=== PATIENT | male | born 2000 | race Caucasian/White ===

== ENCOUNTER 2024-07-10 05:09 | Inpatient (IN) | payer BC ==
[~2024-07-10] VITALS: Ht 182.9 cm; Wt 78.5 kg
[~2024-07-10 05:09] MED LIST: ACAM333T8 PO; CYCL-1 PO; CYCL-394 PO; HYDR-3965 PO; NAPR-56 PO; NAPR-996 PO; PANT-47 PO
[2024-07-10 06:35] LABS: BASOPHILS % (AUTO) 0.2 % (0-1); EOSINOPHILS # (AUTO) 0.1 X10'3 (0-0.9); EOSINOPHILS % (AUTO) 0.9 % (0-6); HEMOGLOBIN 14.9 g/dl (14.0-17.9); LYMPHOCYTES # (AUTO) 0.6 X10'3 (1.1-4.8); MEAN CORPUSCULAR HEMOGLOBIN 30.6 PG (27.0-31.0); MEAN CORPUSCULAR HGB CONC 32.4 g/dL (33.0-36.5); MEAN CORPUSCULAR VOLUME 94.5 FL (78-98); MEAN PLATELET VOLUME 8.2 FL (7.4-10.4); MONOCYTES # (AUTO) 0.6 X10'3 (0-0.9); MONOCYTES % (AUTO) 5.7 % (2-12); NEUTROPHILS # (AUTO) 8.5 X10'3 (1.8-7.7); NEUTROPHILS % (AUTO) 87.2 % (42-75); PLATELET COUNT 232 X10'3 (140-440); RED BLOOD COUNT 4.87 X10'6 (4.70-6.10); RED CELL DISTRIBUTION WIDTH 14.8 % (11.5-14.5); WHITE BLOOD COUNT 9.8 X10'3 (4.5-11.0)
[2024-07-10 06:53] LABS: ALANINE AMINOTRANSFERASE 148 U/L (12-78); ALBUMIN 4.1 G/DL (3.4-5.0); ALBUMIN/GLOBULIN RATIO 1.2 (1.1-1.5); ALKALINE PHOSPHATASE 115 IU/L (46-116); ANION GAP 10 (8-16); ASPARTATE AMINO TRANSFERASE 109 U/L (10-37); BILIRUBIN,TOTAL 1.9 MG/DL (0.1-1.0); BLOOD UREA NITROGEN 10 MG/DL (7-18); BUN/CREATININE RATIO 12.3 (10.0-20.0); CALCIUM 8.8 MG/DL (8.5-10.1); CHLORIDE 98 MMOL/L (99-107); CREATININE 0.81 MG/DL (0.60-1.10); GLUCOSE 190 MG/DL (70-104); POTASSIUM 3.6 MMOL/L (3.5-5.1); SODIUM 134 MMOL/L (135-145); TOTAL CARBON DIOXIDE 25.6 MMOL/L (24-32); TOTAL PROTEIN 7.5 G/DL (6.4-8.2); eCRCL 154 ML/MIN; eGFR > 90 ML/MIN
[2024-07-10] MEDS ORDERED: iohexol 300mg/ml 100ml inj. ONE (06:59)
[2024-07-10] MEDS: ondansetron/PF 4mg/2ml inj IV ONE (07:07)
[2024-07-10] MEDS: normal saline 1000ml 1,000 ML IV ONE (07:08)
[2024-07-10] MEDS: morphine 2 MG/ML inj. syringe IV ONE (07:08)
[2024-07-10 07:20] LABS: LIPASE > 375 U/L (16-77)
[2024-07-10 07:28] LABS: ETHANOL < 10 MG/DL (<10); MAGNESIUM 1.7 MG/DL (1.5-2.4)
[2024-07-10] MEDS: morphine 2 MG/ML inj. syringe IV PRN (11:17)
[2024-07-10] MEDS ORDERED: acetaminophen 325mg tablet PO PRN (12:05)
[2024-07-10] MEDS ORDERED: magnesium hydroxide 30ml (MOM) UD suspension PO PRN (12:05)
[2024-07-10] MEDS ORDERED: potassium Cl 40MEQ/1/2NS 520ml 520 ML IV PRN (12:05)
[2024-07-10] MEDS ORDERED: potassium Cl 20 mEq SR tablet PO PRN ×2 (12:05)
[2024-07-10] MEDS ORDERED: magnesium Cl slow-release 64mg tablet PO PRN (12:05)
[2024-07-10] MEDS ORDERED: magnesium sulf-water 4G/100mL 100 ML IV PRN (12:05)
[2024-07-10] MEDS ORDERED: mag hydrox/Alum hydrox/simeth 30ml oral suspension PO PRN (12:05)
[2024-07-10] MEDS ORDERED: ondansetron/PF 4mg/2ml inj IV PRN (12:05)
[2024-07-10] MEDS ORDERED: magnesium sulf-water 2g/50mL 50 ML IV PRN (12:05)
[2024-07-10] MEDS: normal saline 1000ml 1,000 ML IV SCH (12:38)
[2024-07-10] MEDS ORDERED: NO HOME MEDS (12:59)
[2024-07-10] MEDS: dextrose 5%-normal saline 1,000 ML IV SCH (13:15)
[2024-07-10] MEDS ORDERED: haloperidol 5mg tablet PO PRN (14:10)
[2024-07-10] MEDS ORDERED: glucagon, human recombinant 1mg kit SUBCUT PRN (14:20)
[2024-07-10] MEDS ORDERED: dextrose 50%-water 50ml dispensing syringe IV PRN ×2 (14:20)
[2024-07-10] MEDS ORDERED: DEXTROSE 15 GM of carb/4 tabs (each vial/BOTTLE has 4 tablets) PO PRN ×2 (14:20)
[2024-07-10 15:19] LABS: CHOL/HDL RATIO 1.5 (0.00-4.99); CHOLESTEROL 148 MG/DL (0-200); HDL CHOLESTEROL 99 MG/DL (35-60); LDL CHOLESTEROL 30 MG/DL (50-100); TRIGLYCERIDES 55 MG/DL (20-135)
[2024-07-10] MEDS: nicotine 14mg patch - 24hr TD SCH (15:31)
[2024-07-10] MEDS: folic acid 1mg/0.2ml inj IV SCH (15:31)
[2024-07-10 15:33] LABS: HEMOGLOBIN A1C 4.7 % (4.5-6.2)
[2024-07-10] MEDS: LORazepam 2 mg/ml vial IV PRN (16:46)
[2024-07-10] MEDS: INSULIN LISPRO 100 UNIT/ML INSULN.PEN MULTI-DOSE SQ SCH (17:00)
[2024-07-10] MEDS: docusate sod 100mg capsule PO SCH (20:05)
[2024-07-10] MEDS: K and/or MAG REPLACEMENT MC SCH (20:06)
[2024-07-10] MEDS: thiamine 100mg/ml 2ml inj. IV SCH (21:30)
[2024-07-10 22:00] VITALS: BP 144/98; PULSE 94; RESP 16; TEMP 98.4; O2SAT 99
[2024-07-11 05:58] LABS: BASOPHILS % (AUTO) 0.2 % (0-1); EOSINOPHILS # (AUTO) 0.5 X10'3 (0-0.9); EOSINOPHILS % (AUTO) 5.6 % (0-6); HEMATOCRIT 43.9 % (42.0-52.0); HEMOGLOBIN 14.5 g/dl (14.0-17.9); LYMPHOCYTES # (AUTO) 0.7 X10'3 (1.1-4.8); LYMPHOCYTES % (AUTO) 8.8 % (21-51); MEAN CORPUSCULAR HEMOGLOBIN 31.1 PG (27.0-31.0); MEAN CORPUSCULAR VOLUME 94.2 FL (78-98); MEAN PLATELET VOLUME 8.9 FL (7.4-10.4); MONOCYTES # (AUTO) 0.8 X10'3 (0-0.9); MONOCYTES % (AUTO) 9.6 % (2-12); NEUTROPHILS # (AUTO) 6.5 X10'3 (1.8-7.7); NEUTROPHILS % (AUTO) 75.8 % (42-75); PLATELET COUNT 193 X10'3 (140-440); RED BLOOD COUNT 4.66 X10'6 (4.70-6.10); WHITE BLOOD COUNT 8.5 X10'3 (4.5-11.0)
[2024-07-11 06:00] VITALS: BP 147/87; PULSE 74; RESP 16; TEMP 97.5; O2SAT 98
[2024-07-11 06:04] LABS: INR 1.1 INR
[2024-07-11 06:09] LABS: ALANINE AMINOTRANSFERASE 93 U/L (12-78); ALBUMIN 3.4 G/DL (3.4-5.0); ALKALINE PHOSPHATASE 104 IU/L (46-116); ANION GAP 5 (8-16); ASPARTATE AMINO TRANSFERASE 49 U/L (10-37); BILIRUBIN,TOTAL 1.4 MG/DL (0.1-1.0); BLOOD UREA NITROGEN 7 MG/DL (7-18); BUN/CREATININE RATIO 9.7 (10.0-20.0); CALCIUM 8.4 MG/DL (8.5-10.1); CHLORIDE 101 MMOL/L (99-107); CREATININE 0.72 MG/DL (0.60-1.10); GLUCOSE 108 MG/DL (70-104); MAGNESIUM 1.8 MG/DL (1.5-2.4); PHOSPHORUS 1.8 MG/DL (2.3-4.5); POTASSIUM 4.1 MMOL/L (3.5-5.1); SODIUM 135 MMOL/L (135-145); TOTAL CARBON DIOXIDE 28.9 MMOL/L (24-32); TOTAL PROTEIN 6.9 G/DL (6.4-8.2); eCRCL 174 ML/MIN; eGFR > 90 ML/MIN
[2024-07-11 07:16] LABS: LIPASE > 375 U/L (16-77)
[2024-07-11 10:00] VITALS: BP 147/98; PULSE 100; RESP 14; TEMP 97.8; O2SAT 97
[2024-07-11 18:00] VITALS: BP 137/57; PULSE 111; RESP 16; TEMP 97.8; O2SAT 97
[2024-07-11 19:40] VITALS: BP 148/104; PULSE 97; RESP 16; TEMP 97.8; O2SAT 99
[2024-07-11 22:00] VITALS: BP 133/94; PULSE 78; RESP 16; TEMP 97.7; O2SAT 98
[2024-07-12 06:25] LABS: INR 1.1 INR; PROTHROMBIN TIME 11.8 SECONDS (9.0-12.0)
[2024-07-12 06:29] LABS: EOSINOPHILS # (AUTO) 0.6 X10'3 (0-0.9); EOSINOPHILS % (AUTO) 6.7 % (0-6); MONOCYTES # (AUTO) 1.1 X10'3 (0-0.9); NEUTROPHILS # (AUTO) 6.3 X10'3 (1.8-7.7)
[2024-07-12 06:30] LABS: BASOPHILS % (AUTO) 0.3 % (0-1); HEMATOCRIT 42.6 % (42.0-52.0); HEMOGLOBIN 14.1 g/dl (14.0-17.9); LYMPHOCYTES # (AUTO) 1.3 X10'3 (1.1-4.8); LYMPHOCYTES % (AUTO) 13.5 % (21-51); MEAN CORPUSCULAR HEMOGLOBIN 31.4 PG (27.0-31.0); MEAN PLATELET VOLUME 9.4 FL (7.4-10.4); MONOCYTES % (AUTO) 12.1 % (2-12); NEUTROPHILS % (AUTO) 67.4 % (42-75); PLATELET COUNT 195 X10'3 (140-440); RED BLOOD COUNT 4.48 X10'6 (4.70-6.10); RED CELL DISTRIBUTION WIDTH 14.8 % (11.5-14.5); WHITE BLOOD COUNT 9.3 X10'3 (4.5-11.0)
[2024-07-12 06:37] VITALS: BP 125/86; PULSE 81; RESP 22; TEMP 97.8; O2SAT 98
[2024-07-12 06:47] LABS: ALANINE AMINOTRANSFERASE 70 U/L (12-78); ALBUMIN 2.9 G/DL (3.4-5.0); ALBUMIN/GLOBULIN RATIO 0.7 (1.1-1.5); ALKALINE PHOSPHATASE 103 IU/L (46-116); ANION GAP 5 (8-16); ASPARTATE AMINO TRANSFERASE 37 U/L (10-37); BILIRUBIN,TOTAL 1.5 MG/DL (0.1-1.0); BLOOD UREA NITROGEN 8 MG/DL (7-18); CALCIUM 8.6 MG/DL (8.5-10.1); CHLORIDE 100 MMOL/L (99-107); GLUCOSE 106 MG/DL (70-104); LIPASE 358 U/L (16-77); MAGNESIUM 1.8 MG/DL (1.5-2.4); POTASSIUM 4.5 MMOL/L (3.5-5.1); SODIUM 136 MMOL/L (135-145); TOTAL CARBON DIOXIDE 30.7 MMOL/L (24-32); TOTAL PROTEIN 7.1 G/DL (6.4-8.2); eCRCL 156 ML/MIN; eGFR > 90 ML/MIN
[2024-07-12 06:58] LABS: BILIRUBIN,URINE NEGATIVE (Neg); CLARITY,URINE SLIGHTLY CLOUDY (Clear); COLOR,URINE YELLOW (Yellow); GLUCOSE, URINE NEGATIVE (Neg); KETONES,URINE TRACE mg/dl (Neg); LEUKOCYTE ESTERASE ,URINE SMALL (Neg); NITRITES, URINE NEGATIVE (Neg); OCCULT BLOOD,URINE NEGATIVE (Neg); PH,URINE >=9.0 (4.8-8.0); PROTEIN,URINE TRACE mg/dl (Neg); UROBILINOGEN,URINE >=8.0 E.U/dL (0.2-1.0)
[2024-07-12 07:10] LABS: UA COLLECTION TYPE CLN CATCH MIDSTREAM; URINE AMPHETAMINE SCREEN NEGATIVE (Neg); URINE BARBITUATE SCREEN NEGATIVE (Neg); URINE BENZODIAZEPINES SCREEN NEGATIVE (Neg); URINE CANNABINOID SCREEN POSITIVE (Neg); URINE COCAINE SCREEN POSITIVE (Neg); URINE METHADONE SCREEN NEGATIVE (Neg); URINE OPIATE SCREEN POSITIVE (Neg); URINE PHENCYCLIDINE SCREEN NEGATIVE (Neg)
[2024-07-12 07:12] LABS: RBC,URINE NONE SEEN /HPF (0-2); WBC,URINE 0-4 /HPF (0-4)
[2024-07-12 07:14] LABS: AMORPHOUS PHOSPHATES 1+; BACTERIA,URINE 2+ /HPF (Neg); SQUAMOUS EPITHELIAL CELL,UR NONE SEEN /LPF (FEW)
[2024-07-12 08:00] VITALS: RESP 20; O2SAT 97
[2024-07-12] MEDS: CefTRIAXone/D5W-Rocephin 1gm 50 ML IV SCH (15:45)
[2024-07-12] MEDS: morphine 2 MG/ML inj. syringe IV PRN (17:03)
[2024-07-12] MEDS: azithromycin 250mg tablet PO ONE (17:54)
[2024-07-12 18:00] VITALS: BP 150/96; PULSE 87; RESP 16; TEMP 97.9; O2SAT 99
[2024-07-12 20:04] LABS: HIV ANTIBODY 1&2 RAPID NON-REACTIVE (Neg)
[2024-07-12 22:00] VITALS: BP 127/78; PULSE 78; RESP 17; TEMP 98.2; O2SAT 99
[2024-07-12] MEDS: LORazepam 1 MG tablet PO PRN (23:11)
[2024-07-13 06:04] LABS: LYMPHOCYTES # (AUTO) 0.7 X10'3 (1.1-4.8); LYMPHOCYTES % (AUTO) 11.7 % (21-51); MONOCYTES # (AUTO) 0.7 X10'3 (0-0.9); NEUTROPHILS # (AUTO) 4.3 X10'3 (1.8-7.7)
[2024-07-13 06:06] LABS: BASOPHILS % (AUTO) 0.4 % (0-1); EOSINOPHILS # (AUTO) 0.2 X10'3 (0-0.9); EOSINOPHILS % (AUTO) 3.6 % (0-6); HEMATOCRIT 40.3 % (42.0-52.0); HEMOGLOBIN 13.3 g/dl (14.0-17.9); MEAN CORPUSCULAR HEMOGLOBIN 31.2 PG (27.0-31.0); MEAN CORPUSCULAR HGB CONC 33.1 g/dL (33.0-36.5); MEAN CORPUSCULAR VOLUME 94.2 FL (78-98); MONOCYTES % (AUTO) 12.4 % (2-12); NEUTROPHILS % (AUTO) 71.9 % (42-75); PLATELET COUNT 200 X10'3 (140-440); RED BLOOD COUNT 4.28 X10'6 (4.70-6.10); RED CELL DISTRIBUTION WIDTH 14.7 % (11.5-14.5)
[2024-07-13 06:13] LABS: INR 1.1 INR; PROTHROMBIN TIME 11.6 SECONDS (9.0-12.0)
[2024-07-13 06:22] LABS: ALANINE AMINOTRANSFERASE 59 U/L (12-78); ALBUMIN 3.2 G/DL (3.4-5.0); ALBUMIN/GLOBULIN RATIO 0.8 (1.1-1.5); ALKALINE PHOSPHATASE 100 IU/L (46-116); ANION GAP 10 (8-16); ASPARTATE AMINO TRANSFERASE 33 U/L (10-37); BLOOD UREA NITROGEN 9 MG/DL (7-18); CALCIUM 8.8 MG/DL (8.5-10.1); CHLORIDE 100 MMOL/L (99-107); CREATININE 0.75 MG/DL (0.60-1.10); GLUCOSE 102 MG/DL (70-104); LIPASE 192 U/L (16-77); MAGNESIUM 1.9 MG/DL (1.5-2.4); PHOSPHORUS 2.7 MG/DL (2.3-4.5); POTASSIUM 3.8 MMOL/L (3.5-5.1); SODIUM 137 MMOL/L (135-145); TOTAL CARBON DIOXIDE 27.3 MMOL/L (24-32); eCRCL 167 ML/MIN; eGFR > 90 ML/MIN
[2024-07-13 06:37] VITALS: BP 137/85; PULSE 107; RESP 18; TEMP 98.4; O2SAT 96
[2024-07-13 08:00] VITALS: RESP 20; O2SAT 97
[2024-07-13 10:00] VITALS: BP 128/83; PULSE 95; RESP 14; TEMP 97.6; O2SAT 100
[2024-07-13] MEDS ORDERED: THIA50TA10 PO (12:51)
[2024-07-13] MEDS ORDERED: CEFD300C3 PO ×2 (12:51→13:00)
[2024-07-13] MEDS ORDERED: LACT1CAP65 PO (12:51)
[2024-07-13] MEDS ORDERED: OMEP20CA15 PO (12:51)
[2024-07-13] MEDS ORDERED: FOLI0.4T6 PO (12:51)
[2024-07-14 05:13] LABS: HBSAG SCREEN Negative (Negative); HEP A AB, IGM Negative (Negative); HEP B CORE AB, IGM Negative (Negative); HEP B CORE AB, TOT Negative (Negative); HEP B SURF AB Non Reactive (.); HEPATITIS C VIRUS ANTIBODY Non Reactive (Non Reactive)
[2024-07-14] MEDS ORDERED: LORazepam 1 MG tablet PO PRN (14:10)
== END 2024-07-13 14:30 | disposition home or self-care (01) | DRG 439 ==
LOC: ER 05:10 → ED HOLD 12:03 → ORTHO 4S 21:00
PROVIDERS: ADMIT Family Medicine; ATTEND Family Medicine
DX: K85.20 Alcohol induced acute pancreatitis without necrosis or infection (principal); N39.0 Urinary tract infection, site not specified; R73.9 Hyperglycemia, unspecified; F19.10 Other psychoactive substance abuse, uncomplicated; R74.01 Elevation of levels of liver transaminase levels; F17.200 Nicotine dependence, unspecified, uncomplicated; Z79.899 Other long term (current) drug therapy
CPT/HCPCS: 36415; 74177; 76700; 80053; 80061; 80305; 80320; 81001; 82948; 83036; 83690; 83735; 84100; 84145; 85025; 85610; 86703; 86704; 86705; 86706; 86709; 86803; 87081; 87088; 87340; 87522; 96374; 96375; 99285; G0378; J0696; J1815; J2060; J2270; J2405; J3411; J3490; J7030; J7042; J7070; Q9967

== ENCOUNTER 2025-04-23 19:58 | Emergency (ER) | payer BC ==
[~2025-04-23] VITALS: Ht 185.4 cm; Wt 83.1 kg
[~2025-04-23 19:58] MED LIST changes: -ACAM333T8 PO; +CEFD300C3 PO; -CYCL-1 PO; -CYCL-394 PO; -HYDR-3965 PO; +LACT1CAP65 PO; -NAPR-56 PO; -NAPR-996 PO; +NO HOME MEDS; +OMEP20CA15 PO; -PANT-47 PO; +THIA50TA10 PO
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
[2025-04-23] MEDS: HYDROcodone/acetaminophen 5mg/325mg tablet PO ONE (22:15)
[2025-04-23] MEDS: ketorolac trometh 30MG/ML vial 30 MG/ML VIAL IM ONE (22:16)
[2025-04-23] MEDS ORDERED: NAPR-1170 PO (22:40)
[2025-04-23] MEDS ORDERED: CYCL-394 PO (22:40)
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
[2025-04-23 23:00] VITALS: BP 136/98; PULSE 82; RESP 18; TEMP 98.6; O2SAT 99
== END 2025-04-23 23:00 | disposition home or self-care (01) ==
LOC: ER 19:59
DX: S19.9XXA Unspecified injury of neck, initial encounter (principal); S09.90XA Unspecified injury of head, initial encounter; F14.90 Cocaine use, unspecified, uncomplicated; F12.90 Cannabis use, unspecified, uncomplicated; F10.90 Alcohol use, unspecified, uncomplicated; Z79.899 Other long term (current) drug therapy; Y90.9 Presence of alcohol in blood, level not specified; V89.2XXA Person injured in unspecified motor-vehicle accident, traffic, initial encounter; Y93.89 Activity, other specified; Y92.89 Other specified places as the place of occurrence of the external cause; Y99.8 Other external cause status
CPT/HCPCS: 71046; 72070; 72100; 96372; 99284; J1885

== ENCOUNTER 2025-05-20 04:12 | Emergency (ER) | payer BC ==
[~2025-05-20] VITALS: Ht 182.9 cm; Wt 81.8 kg
[~2025-05-20 04:12] MED LIST changes: +CYCL-394 PO; +NAPR-1170 PO
[2025-05-20 04:17] VITALS: BP 133/94; PULSE 87; RESP 20; TEMP 98.2; O2SAT 96
== END 2025-05-20 06:09 | disposition left against medical advice (07) ==
LOC: ER 04:13
DX: R10.10 Upper abdominal pain, unspecified (principal); R11.10 Vomiting, unspecified; Z53.21 Procedure and treatment not carried out due to patient leaving prior to being seen by health care provider
CPT/HCPCS: 99281

== ENCOUNTER 2025-05-20 14:58 | Inpatient (IN) | payer BC ==
[~2025-05-20] VITALS: Ht 182.9 cm; Wt 83.8 kg
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
[2025-05-20 15:37] LABS: MEAN PLATELET VOLUME 7.9 FL (7.4-10.4); RED CELL DISTRIBUTION WIDTH 15.6 % (11.5-14.5)
[2025-05-20 15:44] LABS: CREATININE 1.11 MG/DL (0.60-1.10); TOTAL CARBON DIOXIDE 29.6 MMOL/L (24-32); eCRCL 112 ML/MIN; eGFR 81 ML/MIN
[2025-05-20 15:46] LABS: UA COLLECTION TYPE URINAL
[2025-05-20] MEDS: normal saline 1000ml 1,000 ML IV ONE ×2 (15:46→17:58)
[2025-05-20] MEDS: ondansetron/PF 4mg/2ml inj IV ONE ×2 (15:49→17:59)
[2025-05-20] MEDS: morphine 4 MG/ML inj SYRINge IV ONE ×2 (15:50→17:59)
[2025-05-20 15:51] LABS: MUCUS STRANDS MANY /LPF (Neg); SQUAMOUS EPITHELIAL CELL,UR FEW /LPF (FEW)
[2025-05-20] MEDS ORDERED: iohexol 300mg/ml 100ml inj. ONE (17:04)
--- NOTE | 2025-05-20 17:46 | RADIOLOGY REPORT ---
COMPUTERIZED TOMOGRAPHY CHEST/ABDOMEN/PELVIS WITH INTRAVENOUS CONTRAST CLINICAL HISTORY: abdominal pain COMPARISON: DI CHEST,TWO VIEWS on DOS: 04/23/25, CT CT ABDOMEN PELVIS on DOS: 07/10/24, CT CT ABDOMEN PELVIS on DOS: 12/15/23, DI CHEST,TWO VIEWS on DOS: 12/14/23 TECHNIQUE: After the administration of intravenous contrast, axial CT images of the chest, abdomen and pelvis were obtained. 2-D coronal and sagittal reformatted images were provided. Radiation optimization: All CT scans at this facility use at least one of these dose optimization techniques: Automated exposure control mA and/or kV adjustment per patient size (includes targeted exams where dose is matched to clinical indication) or iterative reconstruction. CONTRAST ADMINISTERED: 100 mL omnipaque 300, intravenously. RADIATION DOSE: CTDI: 13 mGy DLP: 1222 mGy-cm FINDINGS: CHEST: There is bronchial wall thickening consistent with bronchitis. There is tree in bud nodularity in the posterolateral right lower lobe most consistent with focal bronchopneumonitis. There is no significant pulmonary nodule or mass. There is no pleural effusion. There is no pneumothorax. The visualized thyroid gland is unremarkable. The heart is not enlarged. There is no pericardial effusion. There is no thoracic aortic aneurysm. There is no pathologic lymphadenopathy in the chest by size criteria. ABDOMEN/PELVIS: The spleen is not enlarged. The liver is normal in size and contour. The hepatic veins are patent. The portal vein is patent. No calcified gallstone is identified. There is mild diffuse . The prostate and seminal vesicles are within normal limits. hypoenhancement of the pancreas. The pancreas appears mildly atrophic.There is extensive peripancreatic inflammatory stranding consistent with acute pancreatitis. No organized collection or walled-off necrosis is identified. The adrenal glands are within normal limits. The kidneys enhance symmetrically. No solid renal mass is identified. There is no hydronephrosis of either kidney. There is no abdominal aortic aneurysm. There is no free fluid in the pelvis. The colonic stool burden is insignificant. The appendix is normal. There is no pathologic distention of the small bowel. The urinary bladder appears thick-walled although this may be secondary to nondistentionNo pathologic lymphadenopathy is identified in the abdomen or pelvis by size criteria. There is acute fracture of the inferior endplate of T8 with minimal height loss and no bony retropulsion. There is old healed fracture of the right 1st rib. IMPRESSION: Acute pancreatitis. No organized collection or walled-off necrosis is identified. The pancreas itself appears mildly atrophic, likely secondary to prior episodes of pancreatitis. Acute fracture of the inferior endplate of T8 with minimal height loss and no bony retropulsion. Posterolateral right lower lobe bronchopneumonitis.
[2025-05-20] MEDS: CefTRIAXone/D5W-Rocephin 1gm 50 ML IV ONE (18:00)
[2025-05-20] MEDS ORDERED: magnesium sulf-water 2g/50mL 50 ML IV PRN (18:25)
[2025-05-20] MEDS ORDERED: magnesium sulf-water 4G/100mL 100 ML IV PRN (18:25)
[2025-05-20] MEDS ORDERED: potassium Cl 20 mEq SR tablet PO PRN ×2 (18:25)
[2025-05-20] MEDS ORDERED: magnesium hydroxide 30ml (MOM) UD suspension PO PRN (18:25)
[2025-05-20] MEDS ORDERED: potassium Cl 40MEQ/1/2NS 520ml 520 ML IV PRN (18:25)
[2025-05-20] MEDS ORDERED: mag hydrox/Alum hydrox/simeth 30ml oral suspension PO PRN (18:25)
--- NOTE | 2025-05-20 18:46 | HISTORY AND PHYSICAL ---
History & Physical Providers to CC ~ History of Present Illness Reason for Admit\Complaint: Acute pancreatitis\UTI\right lower lobe bronchiectasis History of Present Illness This is a 25-year-old male who has had two prior hospitalizations for pancreatitis secondary to alcohol use disorder has cut back on his alcohol use and drinks two beers a day on average however on the patient was drinking heavily and yesterday developed significant abdominal pain with vomiting to the point where he came to ED in the morning however left prior to being seen and presents back to the ED with worsening abdominal pain nausea and vomiting he has a lipase greater than 375 an amylase a 2-0 nine and a elevated white blood cell count the patient has hematuria and 2+ bacteria in his urine and the urine is sent for culture and sensitivity the CT scan of the abdomen and pelvis demonstrates atrophic pancreas as well as a acute pancreatitis and left lower lobe bronchiectasis. Allergies: Coded Allergies: No Known Allergies (Unverified , 05/20/25) Home Medications Home Medications Active Cyclobenzaprine HCl 10 Mg Tablet 1 Tab PO HS 30 Days Naproxen 250 Mg Tablet 1 Tab PO Q12H 15 Days Cefdinir 300 Mg Capsule 1 Cap PO Q12H 5 Days Vitamin B-1 (Thiamine HCl) 50 Mg Tablet 2 Tab PO DAILY 30 Days Omeprazole 20 Mg Capsule.dr 1 Cap PO DAILY 30 Days Probiotic (Lactobacillus Acidophilus) 10 Billion Cell Capsule 1 Cap PO BID 30 Days Reported No Home Medications (Home Med List) Each Past Medical History Past Medical History Acute pancreatitis x2 requiring hospitalization Past Surgical History Surgical History Comment No prior surgeries Family History Family History: Patient reports no known family medical history. Past Social History Social History Comment Previously smoked greater than a pack of cigarettes per day now of vapes a significant amount of nicotine, states he has cut back to two beers a day however did binge drink on , history of cocaine use and did use cocaine on however denies any other illicit drug use. Full code status Exam Vitals: Vital Signs Date Time Temp Pulse Resp B/P (MAP) Pulse Ox O2 Delivery O2 Flow Rate FiO2 05/20/25 17:59 16 05/20/25 17:47 53 125/86 (99) 97 0 05/20/25 16:54 98.7 General: Gen. No acute distress alert and oriented 4 Lungs clear to ascultation bilaterally, no wheezes rales or rhonchi appreciated Heart normal sinus rhythm no murmurs rubs or clicks noted Abdomen soft significant generalized abdominal tenderness greatest in the upper middle to left abdominal region bowel sounds are normoactive Lower extremities no clubbing cyanosis, nor edema appreciated bilaterally Diagnostic Data Last Recorded Lab Results: 05/20/25 1520 05/20/25 1520 Counseling Services Smoking & Tobacco Cessation: 3-10 Minutes Advance Care Planning Advanced Care plannin - 30 Minutes Problems: (1) Acute pancreatitis Status: Resolved Additional Plan # acute pancreatitis with two prior hospitalizations for acute pancreatitis # alcohol use disorder On the alcohol withdrawal protocol including PRN p.o. lorazepam and PRN IV diazepam IV fluid resuscitation Daily lipase Pancreatitis diet including low-fat low-cholesterol as tolerated Substance use navigator Shira Magdaleno consult is ordered Seizure precautions # UTI likely secondary to cystitis # hematuria # left lower lobe bronchiectasis IV Rocephin P.o. azithromycin Urine culture Continue to monitor urine for resolution of hematuria # subacute inferior endplate T8 fracture with minimal loss of height and no bony retropulsion Radiologist's read this has not acute fracture however the patient fell four weeks ago and thus is likely and subacute fracture Asymptomatic. # Tobacco use disorder-I spent 7 minutes discussing smoking cessation with the patient including the risk of continuing smoke: Lung cancer, stroke, heart attack, as well as the #1 Cause of erectile dysfunction in men The patient has accepted a 21 mg nicotine patch. # DVT prophylaxis SCDs I spent a total of 16minutes on reviewing various resuscitative measures/ ACP with the patient at the time of admission. The patient has decided on full code status Date of Service: May 20, 2025 Billing Provider: PETEY MAI DO Common Visit Codes: 10700-XWFUGSH INP/OBS CARE (HIGH) Secondary Visit Codes: 44943-HZVBF CHNG SMOKING 3-10M, 53508-IVIPSGSY CARE PLAN 30 MINUTES Problem Qualifiers (1) Acute pancreatitis: Pancreatitis type: alcohol induced Acute pancreatitis complication: u nspecified Qualified Codes: K85.20 - Alcohol induced acute pancreatitis without necrosis or infection PETEY MAI DO May 20, 2025 18:46
[2025-05-20] MEDS: azithromycin/NS 500mg/250ml 250 ML IV STA (18:50)
[2025-05-20] MEDS: nicotine 21mg patch - 24 hr TD ONE (18:51)
[2025-05-20] MEDS: HYDROmorphone inj. 0.5 MG/0.5 ML DISP.SYRIN IV PRN (19:45)
[2025-05-20] MEDS: normal saline 1000ml 1,000 ML IV SCH (19:47)
[2025-05-20] MEDS: K and/or MAG REPLACEMENT MC SCH (20:00)
[2025-05-20] MEDS: docusate sod 100mg capsule PO SCH (20:05)
--- NOTE | 2025-05-20 20:25 | RADIOLOGY REPORT ---
ULTRASOUND ABDOMEN, LIMITED RIGHT UPPER QUADRANT: REASON FOR EXAM: Pancreatitis TECHNIQUE: Real-time sector scans in the transverse and longitudinal planes were obtained through the right upper quadrant of the abdomen. FINDINGS: The liver is of normal size and contour. The liver parenchyma appears echogenic. Portal vein is patent. There is no intrahepatic biliary ductal dilatation. The common bile duct measures 4 mm. No gallstones or sludge are identified. There is no gallbladder wall thickening nor pericholecystic fluid. There is no sonographic Ulloa's sign. The pancreas is obscured by bowel gas. The right kidney measures 9.2 cm. No hydronephrosis or nephrolithiasis is identified. There is no evidence of right renal mass or cyst. The visualized portions of the abdominal aorta demonstrate no evidence of aneurysmal dilatation. The visualized inferior vena cava is unremarkable. There is no free fluid identified in the right upper quadrant. IMPRESSION: Diffusely echogenic liver parenchyma. This may be secondary to steatosis or another diffuse hepatic process. Correlate clinically and with liver function tests. The pancreas is obscured by bowel gas.
[2025-05-20 22:40] VITALS: BP 153/89; PULSE 68; RESP 18; TEMP 97.9; O2SAT 100
[2025-05-21] MEDS: ondansetron/PF 4mg/2ml inj IV PRN (01:39)
[2025-05-21 02:35] VITALS: O2SAT 100
[2025-05-21] MEDS: HYDROcodone/acetaminophen 10/325mg tab PO ONE (03:32)
[2025-05-21 05:49] LABS: MEAN PLATELET VOLUME 8.2 FL (7.4-10.4); RED CELL DISTRIBUTION WIDTH 15.6 % (11.5-14.5)
[2025-05-21 05:51] LABS: INR 1.0 INR
[2025-05-21 06:00] VITALS: BP 142/95; PULSE 58; RESP 18; TEMP 97.6; O2SAT 98
[2025-05-21 06:06] LABS: CREATININE 0.92 MG/DL (0.60-1.10); TOTAL CARBON DIOXIDE 27.7 MMOL/L (24-32); eCRCL 135 ML/MIN; eGFR > 90 ML/MIN
[2025-05-21] MEDS: CefTRIAXone/D5W-Rocephin 1gm 50 ML IV SCH (07:09)
[2025-05-21] MEDS: multivitamins, therapeutics tablet PO SCH (07:10)
[2025-05-21] MEDS: nicotine 21mg patch - 24 hr TD SCH (07:12)
[2025-05-21 10:00] VITALS: BP 159/98; PULSE 88; RESP 18; TEMP 97.2; O2SAT 98
[2025-05-21] MEDS ORDERED: magnesium sulf-water 2g/50mL 50 ML IV PRN (10:30)
[2025-05-21] MEDS ORDERED: magnesium sulf-water 4G/100mL 100 ML IV PRN (10:30)
[2025-05-21] MEDS: magnesium Cl slow-release 64mg tablet PO PRN (11:24)
--- NOTE | 2025-05-21 12:08 | PROGRESS NOTE ---
Daily Progress Note Providers to CC ~ Antibiotic Timeout Antibiotic Ordered?: No Subjective No new complaints. Patient continues to have abdominal pain. Objective Vital Signs Date Time Temp Pulse Resp B/P (MAP) Pulse Ox O2 Delivery O2 Flow Rate FiO2 05/21/25 11:25 14 05/21/25 10:00 97.2 88 159/98 (118) 98 Room Air 05/21/25 02:35 0 21 Result Diagram: 05/21/2544705/21/258 Gen. awake alert oriented asymptomatic HEENT: Normocephalic, atraumatic, extraocular movements are intact, sclera anicteric, conjunctiva pinkish, moist oral mucosa, no rash or ulcers. NECK: Supple, no JVD, trachea midline. CHEST: Clear to auscultation, no wheezes crackles or rhonchi. HEART: Regular rate rhythm, no murmur gallop or rub. ABDOMEN: Soft,tender in the epigastrium, no organomegaly. EXTREMITIES: No cyanosis clubbing or edema. NEURO EXAM: Grossly nonfocal. MUSCULOSKELETAL : No joint swelling or deformities. SKIN: No rash or ulcers noted. Coagulation Studies Laboratory Tests Test 05/21/25 04:48 Prothrombin Time 10.2 SECONDS (9.0-12.0) INR International Normalized Ratio 1.0 INR Coagulation Comments Other Results Medications reviewed Problem\Assessment\Plan Problems/Diagnosis: (1) Acute pancreatitis 25-year-old male with a history of recurrent pancreatitis, presented to the ER for evaluation of abdominal pain. # acute on chronic recurrent pancreatitis: Continue address pain control. Monitor lipase. Keep NPO. Continue IV hydration #chronic alcoholism: Monitor and treat for withdrawals if necessary . Continue folic acid and multivitamins. # vomiting: IV Zofran # GERD: Continue omeprazole # UTI: Await final cultures. Continue IV Rocephin # code status: Full code Date of Service: May 21, 2025 Billing Provider: MARY ANN ESCALERA MD Common Visit Codes: [id number]-[id number] INP/OBS CARE(HIGH) Problem Qualifiers (1) Acute pancreatitis: Qualified Codes: K85.20 - Alcohol induced acute pancreatitis without necrosis or infection MARY ANN ESCALERA MD May 21, 2025 12:08
[2025-05-21] MEDS: hydrALAZINE 20mg/ml inj. IV SCH (14:19)
[2025-05-21 18:00] VITALS: BP 123/83; PULSE 61; RESP 18; TEMP 97; O2SAT 97
[2025-05-21 22:00] VITALS: BP 138/96; PULSE 74; RESP 15; TEMP 98.3; O2SAT 96
[2025-05-22 05:56] LABS: MEAN PLATELET VOLUME 8.0 FL (7.4-10.4); RED CELL DISTRIBUTION WIDTH 15.4 % (11.5-14.5)
[2025-05-22 06:00] VITALS: BP 130/96; PULSE 99; RESP 16; TEMP 97.6; O2SAT 97
[2025-05-22 06:02] LABS: INR 1.0 INR
[2025-05-22 06:17] LABS: CREATININE 0.77 MG/DL (0.60-1.10); TOTAL CARBON DIOXIDE 28.1 MMOL/L (24-32); eCRCL 161 ML/MIN; eGFR > 90 ML/MIN
[2025-05-22 10:00] VITALS: BP 133/92; PULSE 82; RESP 16; TEMP 98.2; O2SAT 97
[2025-05-22] MEDS ORDERED: magnesium sulf-water 4G/100mL 100 ML IV PRN (14:15)
[2025-05-22] MEDS ORDERED: magnesium Cl slow-release 64mg tablet PO PRN (14:15)
[2025-05-22] MEDS ORDERED: magnesium sulf-water 2g/50mL 50 ML IV PRN (14:15)
--- NOTE | 2025-05-22 14:20 | PROGRESS NOTE ---
Daily Progress Note Providers to CC ~ Antibiotic Timeout Antibiotic Ordered?: No Subjective No new complaints, patient is resting comfortably, continues to have abdominal pain. Objective Vital Signs Date Time Temp Pulse Resp B/P (MAP) Pulse Ox O2 Delivery O2 Flow Rate FiO2 05/22/25 10:00 98.2 82 16 133/92 (106) 97 Room Air 05/21/25 02:35 0 21 Result Diagram: 05/22/2552505/22/25525 Gen. awake alert oriented asymptomatic HEENT: Normocephalic, atraumatic, extraocular movements are intact, sclera anicteric, conjunctiva pinkish, moist oral mucosa, no rash or ulcers. NECK: Supple, no JVD, trachea midline. CHEST: Clear to auscultation, no wheezes crackles or rhonchi. HEART: Regular rate rhythm, no murmur gallop or rub. ABDOMEN: Soft,tender in the epigastrium, no organomegaly. EXTREMITIES: No cyanosis clubbing or edema. NEURO EXAM: Grossly nonfocal. MUSCULOSKELETAL : No joint swelling or deformities. SKIN: No rash or ulcers noted. Coagulation Studies Laboratory Tests Test 05/22/25 05:26 Prothrombin Time 10.6 SECONDS (9.0-12.0) INR International Normalized Ratio 1.0 INR Coagulation Comments Other Results Medications reviewed Problem\Assessment\Plan Problems/Diagnosis: (1) Acute pancreatitis 25-year-old male with a history of recurrent pancreatitis, presented to the ER for evaluation of abdominal pain. # acute on chronic recurrent pancreatitis: Continue address pain control. Monitor lipase. Keep NPO. Continue IV hydration . Consult bottom presser for PPN #chronic alcoholism: Monitor and treat for withdrawals if necessary . Continue folic acid and multivitamins. # vomiting: IV Zofran PRN # GERD: Continue omeprazole # UTI: Ruled out . Discontinue IV Rocephin # code status: Full code Date of Service: May 22, 2025 Billing Provider: MARY ANN ESCALERA MD Common Visit Codes: [id number] INP/OBS CARE(MOD) Problem Qualifiers (1) Acute pancreatitis: Qualified Codes: K85.20 - Alcohol induced acute pancreatitis without necrosis or infection MARY ANN ESCALERA MD May 22, 2025 14:20
[2025-05-22 15:34] LABS: CREATININE 0.75 MG/DL (0.60-1.10); PHOSPHORUS 3.2 MG/DL (2.3-4.5); TOTAL CARBON DIOXIDE 30.1 MMOL/L (24-32); eCRCL 165 ML/MIN; eGFR > 90 ML/MIN
[2025-05-22 18:00] VITALS: BP 133/92; PULSE 89; RESP 16; TEMP 97.9; O2SAT 97
[2025-05-22 22:00] VITALS: BP 137/95; PULSE 82; RESP 19; TEMP 98.2; O2SAT 99
[2025-05-23 04:44] LABS: MEAN PLATELET VOLUME 8.1 FL (7.4-10.4); RED CELL DISTRIBUTION WIDTH 15.7 % (11.5-14.5)
[2025-05-23 04:52] LABS: INR 1.1 INR
[2025-05-23 04:54] VITALS: O2SAT 99
[2025-05-23 05:01] LABS: CREATININE 0.81 MG/DL (0.60-1.10); PHOSPHORUS 3.6 MG/DL (2.3-4.5); TOTAL CARBON DIOXIDE 29.0 MMOL/L (24-32); eCRCL 153 ML/MIN; eGFR > 90 ML/MIN
[2025-05-23 06:00] VITALS: BP 130/82; PULSE 64; RESP 18; TEMP 97.6; O2SAT 100
[2025-05-23 10:00] VITALS: BP 138/95; PULSE 78; RESP 18; TEMP 98.7; O2SAT 93
--- NOTE | 2025-05-23 11:21 | PROGRESS NOTE ---
Daily Progress Note Providers to CC ~ Antibiotic Timeout Antibiotic Ordered?: No Subjective Patient reports he is hungry. Has a abdominal pain but can not tell methods because of his hunger or because of his pancreatitis. Objective Vital Signs Date Time Temp Pulse Resp B/P (MAP) Pulse Ox O2 Delivery O2 Flow Rate FiO2 05/23/25 08:00 Room Air 05/23/25 08:00 18 05/23/25 06:00 97.6 64 130/82 (98) 100 05/23/25 04:54 0 21 Result Diagram: 05/23/2541805/23/25418 Gen. awake alert oriented asymptomatic HEENT: Normocephalic, atraumatic, extraocular movements are intact, sclera anicteric, conjunctiva pinkish, moist oral mucosa, no rash or ulcers. NECK: Supple, no JVD, trachea midline. CHEST: Clear to auscultation, no wheezes crackles or rhonchi. HEART: Regular rate rhythm, no murmur gallop or rub. ABDOMEN: Soft, mildly tender in the epigastrium, no organomegaly. EXTREMITIES: No cyanosis clubbing or edema. NEURO EXAM: Grossly nonfocal. MUSCULOSKELETAL : No joint swelling or deformities. SKIN: No rash or ulcers noted. Coagulation Studies Laboratory Tests Test 05/23/25 04:19 Prothrombin Time 10.9 SECONDS (9.0-12.0) INR International Normalized Ratio 1.1 INR Coagulation Comments Other Results Medications reviewed Problem\Assessment\Plan Problems/Diagnosis: (1) Acute pancreatitis 25-year-old male with a history of recurrent pancreatitis, presented to the ER for evaluation of abdominal pain. # acute on chronic recurrent pancreatitis: Continue address pain control. Monitor lipase. Start on clear liquids. Continue IV hydration . #chronic alcoholism: Monitor and treat for withdrawals if necessary . Continue folic acid and multivitamins. # vomiting: IV Zofran PRN # GERD: Continue omeprazole # UTI: Ruled out . Discontinue IV Rocephin # code status: Full code Date of Service: May 23, 2025 Billing Provider: MARY ANN ESCALERA MD Common Visit Codes: [id number] INP/OBS CARE(MOD) Problem Qualifiers (1) Acute pancreatitis: Qualified Codes: K85.20 - Alcohol induced acute pancreatitis without necrosis or infection MARY ANN ESCALERA MD May 23, 2025 11:21
[2025-05-23 18:00] VITALS: BP 145/94; PULSE 90; RESP 18; O2SAT 100
[2025-05-23 22:00] VITALS: BP 140/102; PULSE 80; RESP 15; TEMP 98.3; O2SAT 99
[2025-05-24 05:20] LABS: MEAN PLATELET VOLUME 8.2 FL (7.4-10.4); RED CELL DISTRIBUTION WIDTH 15.8 % (11.5-14.5)
[2025-05-24 05:25] LABS: INR 1.1 INR
[2025-05-24 05:35] LABS: CREATININE 0.66 MG/DL (0.60-1.10); PHOSPHORUS 3.6 MG/DL (2.3-4.5); TOTAL CARBON DIOXIDE 27.7 MMOL/L (24-32); eCRCL 188 ML/MIN; eGFR > 90 ML/MIN
[2025-05-24 06:00] VITALS: BP 147/78; PULSE 91; RESP 15; TEMP 98.1; O2SAT 98
[2025-05-24 10:00] VITALS: BP 141/88; PULSE 101; RESP 18; TEMP 98.2; O2SAT 98
[2025-05-24] MEDS: HYDROmorphone/PF 0.2 MG/ML SYRINGE IV PRN (11:11)
--- NOTE | 2025-05-24 12:48 | PROGRESS NOTE ---
Daily Progress Note Providers to CC ~ Antibiotic Timeout Antibiotic Ordered?: No Subjective Patient has no new complaints. Objective Vital Signs Date Time Temp Pulse Resp B/P (MAP) Pulse Ox O2 Delivery O2 Flow Rate FiO2 05/24/25 11:10 15 05/24/25 10:00 98.2 101 141/88 (105) 98 Room Air 05/23/25 20:00 0.0 21 Result Diagram: 05/24/2544105/24/25441 Gen. awake alert oriented asymptomatic HEENT: Normocephalic, atraumatic, extraocular movements are intact, sclera anicteric, conjunctiva pinkish, moist oral mucosa, no rash or ulcers. NECK: Supple, no JVD, trachea midline. CHEST: Clear to auscultation, no wheezes crackles or rhonchi. HEART: Regular rate rhythm, no murmur gallop or rub. ABDOMEN: Soft, mildly tender in the epigastrium, no organomegaly. EXTREMITIES: No cyanosis clubbing or edema. NEURO EXAM: Grossly nonfocal. MUSCULOSKELETAL : No joint swelling or deformities. SKIN: No rash or ulcers noted. Coagulation Studies Laboratory Tests Test 05/24/25 04:42 Prothrombin Time 10.9 SECONDS (9.0-12.0) INR International Normalized Ratio 1.1 INR Coagulation Comments Other Results Medications reviewed Problem\Assessment\Plan Problems/Diagnosis: (1) Acute pancreatitis 25-year-old male with a history of recurrent pancreatitis, presented to the ER for evaluation of abdominal pain. # acute on chronic recurrent pancreatitis: Continue address pain control. Patient continues to be on clear liquid diet. Per RN, he has a abdominal pain each time he ate but is doing fine are clear liquids. Lipase remains 350. Keep on clear liquids, continue monitor lipase. #chronic alcoholism: No withdrawal symptoms reported. Continue folic acid and multivitamins. # vomiting: IV Zofran PRN # GERD: Continue omeprazole # UTI: Ruled out . Discontinue IV Rocephin # code status: Full code Date of Service: May 24, 2025 Billing Provider: MARY ANN ESCALERA MD Common Visit Codes: [id number] INP/OBS CARE(MOD) Problem Qualifiers (1) Acute pancreatitis: Qualified Codes: K85.20 - Alcohol induced acute pancreatitis without necrosis or infection MARY ANN ESCALERA MD May 24, 2025 12:48
[2025-05-24] MEDS: diazepam inj 5 MG/ML inj. IV PRN (17:19)
[2025-05-24 18:00] VITALS: BP 127/88; PULSE 120; RESP 14; TEMP 97.8; O2SAT 98
[2025-05-24 22:00] VITALS: BP 136/80; PULSE 105; RESP 18; TEMP 98.1; O2SAT 97
[2025-05-25 06:00] VITALS: BP 139/91; PULSE 80; RESP 18; TEMP 98.3; O2SAT 99
[2025-05-25 06:27] LABS: MEAN PLATELET VOLUME 8.1 FL (7.4-10.4); RED CELL DISTRIBUTION WIDTH 15.6 % (11.5-14.5)
[2025-05-25 06:33] LABS: INR 1.0 INR
[2025-05-25 06:49] LABS: CREATININE 0.77 MG/DL (0.60-1.10); TOTAL CARBON DIOXIDE 27.7 MMOL/L (24-32); eCRCL 161 ML/MIN; eGFR > 90 ML/MIN
[2025-05-25 08:00] VITALS: RESP 17; O2SAT 99
[2025-05-25 10:00] VITALS: BP 132/91; PULSE 102; RESP 17; TEMP 98.9; O2SAT 99
--- NOTE | 2025-05-25 14:12 | DISCHARGE SUMMARY ---
Discharge Summary Providers to CC ~ Discharge Summary Admission Diagnosis: ACUTE PANCREATITIS, ALCOHOL USE DISORDER, PNEUMONIA Hospital Course DATE OF ADMISSION: 05/20/2025 DATE OF DISCHARGE: 05/25/2025 Discharge Diagnosis\Comment: Acute on chronic recurrent pancreatitis Chronic alcoholism GERD UTI Ruled out Operations\Procedures: Chest / Abdomen/ Pelvis CT US Abdomen Consultants: None Complications: None Condition on DC: Stable Discontinued Medications: Naproxen (Naproxen) 250 Mg Tablet 1 TAB PO Q12H for pain for 15 Days, #30 TAB 0 Refills Discharge Summary: Reason for admission : 25-year-old male with a history of recurrent pancreatitis, presented to the ER for evaluation of abdominal pain. Please refer to admission H $ P for further details. Hospital course : Patient was admitted on the monitored floor and her hospital course is as follows. # Acute on chronic recurrent pancreatitis: Lipase was checked and it trended down. Pain control was address. Patient was started on IV fluids. #chronic alcoholism: No withdrawal symptoms reported. Placed on folic acid and multivitamins. Patient has been counseled # vomiting: Treated with IV Zofran PRN # GERD: Treated with omeprazole # UTI: Ruled out . Discontinued IV Rocephin Discharge exam: I examined the patient on the day of discharge. He is tolerating his diet. Lipase is trending down. HEENT normocephalic atraumatic extraocular movements are intact Neck supple, no JVD Chest: Clear to auscultation, no wheezes crackles rhonchi Heart: Regular rate rhythm, no murmur or gallop rub Abdomen is soft nontender no organomegaly Extremities no cyanosis clubbing or edema Neuro exam nonfocal Disposition: Home *Problems/Diagnosis: (1) Acute pancreatitis Status: Resolved Total Time Spent on D/C: > 30 Minutes Date of Service: May 25, 2025 Billing Provider: MARY ANN ESCALERA MD Common Visit Codes: [id number]-KSC/OBS DISCH DAY >30min Problem Qualifiers (1) Acute pancreatitis: Qualified Codes: K85.20 - Alcohol induced acute pancreatitis without necrosis or infection MARY ANN ESCALERA MD May 25, 2025 14:07
== END 2025-05-25 16:00 | disposition home or self-care (01) | DRG 438 ==
LOC: ER 14:58 → ED HOLD 18:35 → EDBEDREQTM 21:16 → EDBEDREQ 21:16 → ORTHO 4S 22:35
PROVIDERS: ADMIT Family Medicine; ATTEND Family Medicine
PROC: BW251ZZ Computerized Tomography (CT Scan) of Chest, Abdomen and Pelvis using Low Osmolar Contrast (ICD-10-PCS; principal; 2025-05-20)
DX: K85.20 Alcohol induced acute pancreatitis without necrosis or infection (principal); J18.9 Pneumonia, unspecified organism; J47.0 Bronchiectasis with acute lower respiratory infection; S22.068A Other fracture of T7-T8 thoracic vertebra, initial encounter for closed fracture; N30.01 Acute cystitis with hematuria; F10.20 Alcohol dependence, uncomplicated; K86.1 Other chronic pancreatitis; F14.90 Cocaine use, unspecified, uncomplicated; F17.210 Nicotine dependence, cigarettes, uncomplicated; W18.39XA Other fall on same level, initial encounter; Y93.89 Activity, other specified; Y92.89 Other specified places as the place of occurrence of the external cause; Y99.8 Other external cause status; Z79.899 Other long term (current) drug therapy
CPT/HCPCS: 36415; 71260; 74177; 76700; 80053; 81001; 82150; 82248; 82948; 83690; 83735; 84100; 84134; 84478; 85025; 85610; 87081; 87088; 96374; 96375; 99285; A6258; G0378; J0360; J0456; J0696; J1171; J2270; J2405; J3360; J7030; Q9967